=== PATIENT | female | born 1945 | race African-American/Black ===

== ENCOUNTER 2017-10-28 21:02 | Inpatient (IN) | payer OTHER ==
[~2017-10-28] VITALS: Ht 149.9 cm; Wt 90.2 kg
[~2017-10-28 21:02] MED LIST: ALEVE220 MG PO; CARDIZEM60 MG PO; COZAAR50 MG PO; ERGOCALCIF50000 UNIT PO; IRON325 M1 PO; LASIX40 MG PO; OMEPRAZOLE40 M1 PO; SYNTHROID150 MCG PO; ULTRAM50 MG PO
[2017-10-29 07:38] VITALS: BP 184/79
[2017-10-29 15:34] VITALS: BP 147/64
[2017-10-29 18:13] VITALS: BP 129/63
[2017-10-29 20:32] VITALS: BP 140/65
[2017-10-30 00:10] VITALS: BP 128/58
[2017-10-30 04:00] VITALS: BP 133/65
[2017-10-30 08:17] VITALS: BP 148/65
[2017-10-30 12:07] VITALS: BP 143/66
[2017-10-30 15:31] VITALS: BP 153/64
[2017-10-30 20:04] VITALS: BP 171/87
[2017-10-31 00:09] VITALS: BP 154/67
[2017-10-31 04:12] VITALS: BP 158/71
[2017-10-31 08:22] VITALS: BP 159/67
[2017-10-31] MEDS ORDERED: OXYCODONE HCL5 MG PO (09:44)
[2017-10-31] MEDS ORDERED: DOCUSATE SODIU100 MG PO (09:44)
[2017-10-31] MEDS ORDERED: ELIQUIS2.5 MG PO (09:44)
[2017-10-31] MEDS ORDERED: TYLENOL REGULA325 MG PO (09:44)
[2017-10-31 12:14] VITALS: BP 132/60
[2017-10-31 16:15] VITALS: BP 182/77
== END 2017-10-31 17:38 | DRG 470 ==
LOC: ENRESERV 21:02 → 2SOUTH 10-29 06:42 → 3WEST 10-29 06:42 → 2SOUTH 10-29 08:51 → 3WEST 10-29 15:25 → 2SOUTH 10-29 15:58 → 3WEST 10-31 17:38
PROC: 0SRC0J9 Replacement of Right Knee Joint with Synthetic Substitute, Cemented, Open Approach (ICD-10-PCS; principal; 2017-10-29)
DX: M17.11 Unilateral primary osteoarthritis, right knee (principal); G47.30 Sleep apnea, unspecified; I10 Essential (primary) hypertension; E03.9 Hypothyroidism, unspecified; K21.9 Gastro-esophageal reflux disease without esophagitis; M06.9 Rheumatoid arthritis, unspecified; Z87.891 Personal history of nicotine dependence; Z88.0 Allergy status to penicillin
CPT/HCPCS: 71045; C1713; J0131; J1885; J2250; J2405; J3010; J7050; J7120; L1820; S0020